=== PATIENT | male | born 1975 | race Caucasian/White ===

== ENCOUNTER 2020-03-24 09:39 | Emergency (ER) | payer MEDICAID ==
[~2020-03-24] VITALS: Ht 165.1 cm; Wt 76.0 kg
[2020-03-24 10:29] VITALS: BP 113/70
== END 2020-03-24 10:28 | disposition home or self-care (01) ==
LOC: ER 09:39
DX: Z20.828 Contact with and (suspected) exposure to other viral communicable diseases (principal); R51 Headache
CPT/HCPCS: 36415; 87635; 99281